=== PATIENT | female | born 1980 | race Caucasian/White ===

== ENCOUNTER 2018-08-08 15:47 | Inpatient (IN) | payer OTHER ==
[~2018-08-08] VITALS: Ht 167.6 cm; Wt 67.0 kg
[2018-08-08 15:49] VITALS: Ht 167.6 cm; Wt 67.0 kg
[2018-08-08 17:33] LABS: BASOPHIL % 0.4 % (0-2); PLATELET COUNT 238 x10^3mcL (130-400); RED CELL DISTRIBUTION WIDTH 14.1 % (11.5-14.5)
[2018-08-08 17:36] LABS: CALCIUM 8.5 mg/dL (8.5-10.1); CHLORIDE SERUM 104 mmol/L (98-107); CREATININE SERUM 0.8 mg/dL (0.6-1.0); GFR1 > 60 mL/min; GLUCOSE SERUM 107 mg/dL (74-106); POTASSIUM SERUM 3.8 mmol/L (3.5-5.1); SODIUM SERUM 141 mmol/L (136-145)
[2018-08-08 17:40] LABS: ALBUMIN 3.5 g/dL (3.4-5.0); ALKALINE PHOSPHATASE 64 U/L (46-116); ALT/SGPT 99 U/L (14-59); AST/SGOT 145 U/L (15-37); BILIRUBIN TOTAL 0.61 mg/dL (0.20-1.00); TOTAL PROTEIN, SERUM 6.8 g/dL (6.4-8.2)
[2018-08-08 21:19] LABS: CHOLESTEROL/HDL RATIO 4.6; MAGNESIUM 1.8 mg/dL (1.8-2.4); PHOSPHOROUS 3.1 mg/dL (2.5-4.9)
[2018-08-08 21:39] LABS: T4(THYROXINE) 7.6 ug/dL (4.7-13.3)
[2018-08-08 22:02] VITALS: BP 128/73
[2018-08-09 04:54] VITALS: BP 114/73
[2018-08-09 07:10] LABS: BASOPHIL % 0.4 % (0-2); PLATELET COUNT 239 x10^3mcL (130-400); RED CELL DISTRIBUTION WIDTH 14.4 % (11.5-14.5)
[2018-08-09 07:45] LABS: CALCIUM 7.9 mg/dL (8.5-10.1); CARBON DIOXIDE 26.8 mmol/L (21-32); CHLORIDE SERUM 105 mmol/L (98-107); CREATININE SERUM 0.8 mg/dL (0.6-1.0); GFR1 > 60 mL/min; GLUCOSE SERUM 90 mg/dL (74-106); LIPASE 270 IU/L (73-393); MAGNESIUM 2.2 mg/dL (1.8-2.4); PHOSPHOROUS 3.2 mg/dL (2.5-4.9); SODIUM SERUM 137 mmol/L (136-145)
[2018-08-09 08:05] LABS: UA SPECIFIC GRAVITY 1.025 (1.005-1.035); microscopic required? YES; urine erythrocyte TRACE (NEGATIVE)
[2018-08-09 08:48] VITALS: BP 114/41
[2018-08-09 09:03] LABS: AMPHETAMINE QUAL UR NONE DETECTED (See below)
[2018-08-09 12:34] VITALS: BP 113/65
[2018-08-09 16:44] VITALS: BP 107/62
[2018-08-09 21:31] VITALS: BP 114/63
[2018-08-10 05:45] VITALS: BP 109/69
[2018-08-10 06:37] LABS: BASOPHIL % 0.7 % (0-2); PLATELET COUNT 239 x10^3mcL (130-400); RED CELL DISTRIBUTION WIDTH 14.7 % (11.5-14.5)
[2018-08-10 06:38] LABS: CARBON DIOXIDE 29.9 mmol/L (21-32); CHLORIDE SERUM 106 mmol/L (98-107); CREATININE SERUM 0.9 mg/dL (0.6-1.0); GFR1 > 60 mL/min; GLUCOSE SERUM 84 mg/dL (74-106); POTASSIUM SERUM 4.3 mmol/L (3.5-5.1); SODIUM SERUM 140 mmol/L (136-145)
[2018-08-10] MEDS ORDERED: MOT800 PO (12:09)
[2018-08-10] MEDS ORDERED: MECLIZINE HYD12.5 MG PO (12:09)
[2018-08-10 12:17] VITALS: BP 109/69
[2018-08-10 13:03] VITALS: BP 114/73
== END 2018-08-10 13:44 | disposition home or self-care (01) | DRG 57 ==
LOC: ED 15:47 → DU 20:47
PROVIDERS: Emergency Medicine; ADMIT Internal Medicine
DX: S06.0X1A Concussion with loss of consciousness of 30 minutes or less, initial encounter (principal); G90.8 Other disorders of autonomic nervous system; B17.9 Acute viral hepatitis, unspecified; D72.829 Elevated white blood cell count, unspecified; E05.90 Thyrotoxicosis, unspecified without thyrotoxic crisis or storm; R00.1 Bradycardia, unspecified; S00.01XA Abrasion of scalp, initial encounter; W01.198A Fall on same level from slipping, tripping and stumbling with subsequent striking against other object, initial encounter; Y93.01 Activity, walking, marching and hiking; R74.0 Nonspecific elevation of levels of transaminase and lactic acid dehydrogenase [LDH]; Z98.1 Arthrodesis status; Y92.511 Restaurant or cafe as the place of occurrence of the external cause; Y99.8 Other external cause status; Z90.49 Acquired absence of other specified parts of digestive tract
CPT/HCPCS: 83880; G0480; J1885; J2270; J2405; J3010; J7030; J8597; Q0092

== ENCOUNTER 2019-01-04 11:31 | Emergency (ER) | payer OTHER ==
[~2019-01-04] VITALS: Ht 167.6 cm; Wt 65.3 kg
[~2019-01-04 11:31] MED LIST: MECLIZINE HYD12.5 MG PO; MOT800 PO
[2019-01-04 11:36] VITALS: Ht 167.6 cm; Wt 65.3 kg
[2019-01-04 11:59] LABS: BASOPHIL % 0.8 % (0-2); PLATELET COUNT 231 x10^3mcL (130-400); RED CELL DISTRIBUTION WIDTH 13.4 % (11.5-14.5)
[2019-01-04 12:22] LABS: CALCIUM 9.8 mg/dL (8.5-10.1); CARBON DIOXIDE 29.3 mmol/L (21-32); CHLORIDE SERUM 103 mmol/L (98-107); CREATININE SERUM 0.7 mg/dL (0.6-1.0); GFR1 > 60 mL/min; GLUCOSE SERUM 94 mg/dL (74-106); POTASSIUM SERUM 3.9 mmol/L (3.5-5.1); SODIUM SERUM 140 mmol/L (136-145)
[2019-01-04 12:27] LABS: ALBUMIN 4.2 g/dL (3.4-5.0); ALKALINE PHOSPHATASE 74 U/L (46-116); ALT/SGPT 32 U/L (14-59); AST/SGOT 31 U/L (15-37); BILIRUBIN TOTAL 0.89 mg/dL (0.20-1.00); TOTAL PROTEIN, SERUM 7.5 g/dL (6.4-8.2)
[2019-01-04 17:17] VITALS: BP 124/67
== END 2019-01-04 17:17 | disposition home or self-care (01) ==
LOC: ED 11:31
DX: M62.830 Muscle spasm of back (principal); R07.89 Other chest pain; K29.70 Gastritis, unspecified, without bleeding; Z90.89 Acquired absence of other organs; Z90.49 Acquired absence of other specified parts of digestive tract; Z98.890 Other specified postprocedural states
CPT/HCPCS: 20552; 85378; J1885; J2001; J2270; J2405; J3490; J7030; Q9967